=== PATIENT | female | born 1970 | race Caucasian/White ===

== ENCOUNTER 2018-01-09 07:39 | Day surgery (SDC) | payer OTHER ==
[~2018-01-09] VITALS: Ht 154.9 cm; Wt 86.2 kg
[2018-01-09 08:19] VITALS: BP 123/74
[2018-01-09 09:53] VITALS: BP 111/69
== END 2018-01-09 10:25 | disposition home or self-care (01) ==
LOC: GI 07:39 → OR 08:30 → GI 10:25
PROVIDERS: Internal Medicine Gastroenterology
PROC: 0DJD8ZZ Inspection of Lower Intestinal Tract, Via Natural or Artificial Opening Endoscopic (ICD-10-PCS; principal; 2018-01-09 08:30)
DX: K62.5 Hemorrhage of anus and rectum (principal); K64.8 Other hemorrhoids; K57.30 Diverticulosis of large intestine without perforation or abscess without bleeding
CPT/HCPCS: 45378; J1200; J1610; J2250; J2310; J3010; J3490

== ENCOUNTER 2018-05-29 14:09 | Emergency (ER) | payer OTHER ==
[~2018-05-29] VITALS: Ht 154.9 cm; Wt 93.4 kg
[2018-05-29 14:15] VITALS: Ht 154.9 cm; Wt 93.4 kg
[2018-05-29 16:12] LABS: BASOPHIL % 0.4 % (0-2); RED CELL DISTRIBUTION WIDTH 13.9 % (11.5-14.5)
[2018-05-29 16:17] LABS: PLATELET COUNT 418 x10^3mcL (130-400)
[2018-05-29 16:28] LABS: CALCIUM 9.6 mg/dL (8.5-10.1); CARBON DIOXIDE 24.1 mmol/L (21-32); CHLORIDE SERUM 106 mmol/L (98-107); CREATININE SERUM 0.9 mg/dL (0.6-1.0); GFR1 > 60 mL/min; GLUCOSE SERUM 103 mg/dL (74-106); POTASSIUM SERUM 3.6 mmol/L (3.5-5.1); SODIUM SERUM 142 mmol/L (136-145)
[2018-05-29 16:34] LABS: ALBUMIN 3.9 g/dL (3.4-5.0); ALKALINE PHOSPHATASE 105 U/L (46-116); ALT/SGPT 31 U/L (14-59); AMYLASE 48 U/L (25-115); AST/SGOT 18 U/L (15-37); BILIRUBIN TOTAL 0.12 mg/dL (0.20-1.00); HDL CHOLESTEROL 56 mg/dL (40-60); LIPASE 167 IU/L (73-393); TOTAL PROTEIN, SERUM 8.1 g/dL (6.4-8.2)
[2018-05-29 16:37] LABS: CHOLESTEROL 223 mg/dL (<200)
[2018-05-29 17:01] LABS: microscopic required? YES; urine erythrocyte TRACE (NEGATIVE)
[2018-05-29 18:09] LABS: AMPHETAMINE QUAL UR NONE DETECTED (See below)
[2018-05-29 19:14] VITALS: BP 119/58
== END 2018-05-29 19:14 | disposition home or self-care (01) ==
LOC: ED 14:09
PROVIDERS: Emergency Medicine
DX: I45.19 Other right bundle-branch block (principal); E66.9 Obesity, unspecified; G43.909 Migraine, unspecified, not intractable, without status migrainosus; Z90.710 Acquired absence of both cervix and uterus; Z90.49 Acquired absence of other specified parts of digestive tract
CPT/HCPCS: 36415; 83880; J1885

== ENCOUNTER 2018-12-13 13:25 | Emergency (ER) | payer OTHER ==
[~2018-12-13] VITALS: Ht 154.9 cm; Wt 93.9 kg
[2018-12-13 13:44] VITALS: Ht 154.9 cm; Wt 93.9 kg
[2018-12-13 14:54] VITALS: BP 109/87
== END 2018-12-13 14:54 | disposition home or self-care (01) ==
LOC: ED 13:25
DX: L50.0 Allergic urticaria (principal); G43.909 Migraine, unspecified, not intractable, without status migrainosus; Z90.49 Acquired absence of other specified parts of digestive tract; Z90.710 Acquired absence of both cervix and uterus
CPT/HCPCS: J7512

== ENCOUNTER 2019-10-02 13:50 | Emergency (ER) | payer OTHER ==
[~2019-10-02] VITALS: Ht 154.9 cm; Wt 97.1 kg
[2019-10-02 14:01] VITALS: Ht 154.9 cm; Wt 97.1 kg
[2019-10-02 14:58] LABS: RED CELL DISTRIBUTION WIDTH 14.1 % (11.5-14.5)
[2019-10-02 15:08] LABS: CALCIUM 9.5 mg/dL (8.5-10.1); CARBON DIOXIDE 28.5 mmol/L (21-32); CHLORIDE SERUM 106 mmol/L (98-107); CREATININE SERUM 0.8 mg/dL (0.6-1.0); GFR1 > 60 mL/min; GLUCOSE SERUM 101 mg/dL (74-106); POTASSIUM SERUM 4.4 mmol/L (3.5-5.1); SODIUM SERUM 144 mmol/L (136-145)
[2019-10-02 15:13] LABS: ALBUMIN 3.9 g/dL (3.4-5.0); ALKALINE PHOSPHATASE 136 U/L (46-116); ALT/SGPT 32 U/L (14-59); AMYLASE 47 U/L (25-115); AST/SGOT 19 U/L (15-37); BILIRUBIN TOTAL 0.1 mg/dL (0.20-1.00); LIPASE 137 IU/L (73-393); TOTAL PROTEIN, SERUM 7.8 g/dL (6.4-8.2)
[2019-10-02 15:15] LABS: UA SPECIFIC GRAVITY 1.015 (1.005-1.035); microscopic required? YES; urine erythrocyte NEGATIVE (NEGATIVE)
[2019-10-02 15:21] LABS: PLATELET COUNT 404 x10^3mcL (130-400)
[2019-10-02 16:17] LABS: BAND NEUTROPHIL 0 % (0-10); BASOPHIL 0 % (0-2); MONOCYTE 6 % (0-7); SEGMENTED NEUTROPHILS 54 % (37-75)
[2019-10-02 16:19] LABS: rbc morphology (normal/abnorm) NORMAL (NORMAL)
[2019-10-02 16:20] LABS: PLATELET MORPHOLOGY PLATELETS INCREASED
[2019-10-02 17:05] VITALS: BP 117/65
== END 2019-10-02 17:05 | disposition home or self-care (01) ==
LOC: ED 13:50
PROVIDERS: Emergency Medicine
DX: K57.32 Diverticulitis of large intestine without perforation or abscess without bleeding (principal); G43.909 Migraine, unspecified, not intractable, without status migrainosus; Z90.49 Acquired absence of other specified parts of digestive tract; Z90.710 Acquired absence of both cervix and uterus
CPT/HCPCS: J2405; J3010; J7030

== ENCOUNTER 2019-10-04 12:43 | Emergency (ER) | payer OTHER ==
[~2019-10-04] VITALS: Ht 154.9 cm; Wt 99.3 kg
[2019-10-04 14:30] VITALS: BP 136/83; Ht 154.9 cm; Wt 99.3 kg
== END 2019-10-04 17:26 | disposition home or self-care (01) ==
LOC: ED 12:43
DX: N28.1 Cyst of kidney, acquired (principal); K57.92 Diverticulitis of intestine, part unspecified, without perforation or abscess without bleeding; G43.909 Migraine, unspecified, not intractable, without status migrainosus; Z90.49 Acquired absence of other specified parts of digestive tract; Z90.710 Acquired absence of both cervix and uterus
CPT/HCPCS: Q0092

== ENCOUNTER 2019-12-30 18:21 | Emergency (ER) | payer OTHER ==
[~2019-12-30] VITALS: Ht 154.9 cm; Wt 98.9 kg
[2019-12-30 20:00] LABS: BASOPHIL % 0.4 % (0-2); PLATELET COUNT 420 x10^3mcL (130-400); RED CELL DISTRIBUTION WIDTH 13.9 % (11.5-14.5)
[2019-12-30 20:19] LABS: CALCIUM 9.4 mg/dL (8.5-10.1); CARBON DIOXIDE 25.2 mmol/L (21-32); CHLORIDE SERUM 104 mmol/L (98-107); CREATININE SERUM 0.9 mg/dL (0.6-1.0); GFR1 > 60 mL/min; GLUCOSE SERUM 124 mg/dL (74-106); POTASSIUM SERUM 3.7 mmol/L (3.5-5.1); SODIUM SERUM 140 mmol/L (136-145)
[2019-12-30 20:23] LABS: ALBUMIN 4.1 g/dL (3.4-5.0); ALKALINE PHOSPHATASE 133 U/L (46-116); ALT/SGPT 36 U/L (14-59); AST/SGOT 21 U/L (15-37); BILIRUBIN TOTAL 0.2 mg/dL (0.20-1.00); LIPASE 70 IU/L (73-393)
[2019-12-30 20:27] LABS: TOTAL PROTEIN, SERUM 8.7 g/dL (6.4-8.2)
[2019-12-30 22:07] VITALS: BP 117/83
== END 2019-12-30 22:08 | disposition home or self-care (01) ==
LOC: ED 18:21
PROVIDERS: Emergency Medicine
DX: R10.84 Generalized abdominal pain (principal); D72.829 Elevated white blood cell count, unspecified; G43.909 Migraine, unspecified, not intractable, without status migrainosus; Z90.49 Acquired absence of other specified parts of digestive tract; Z90.710 Acquired absence of both cervix and uterus
CPT/HCPCS: J2405; J3010; J7030